=== PATIENT | female | born 1995 | race African-American/Black ===

== ENCOUNTER 2019-11-26 13:54 | Emergency (ER) | payer SELFPAY ==
[~2019-11-26] VITALS: Ht 162.6 cm; Wt 77.1 kg
[2019-11-26 14:48] VITALS: BP 125/81
== END 2019-11-26 17:39 | disposition left against medical advice (07) ==
LOC: ER 13:54
DX: Z53.21 Procedure and treatment not carried out due to patient leaving prior to being seen by health care provider (principal)